=== PATIENT | female | born 1955 | race African-American/Black ===

== ENCOUNTER 2018-05-12 16:04 | Emergency (ER) | payer MEDICAID ==
[~2018-05-12] VITALS: Ht 167.6 cm; Wt 68.0 kg
[~2018-05-12 16:04] MED LIST: AMBIEN; AMLODIPINE BESYL5 MG ORAL; ASPIRIN81 MG ORAL; ASPRIN; ATORVASTATIN CA20 MG ORAL; CATAPRES0.1 MG PO; CATAPRES0.3 MG ORAL; CLONIDINE PO; CLOTRIMAZOLE AF30 GM TOPIC; DIPHENHYDRAMINE25 M1 ORAL; ENALAPRIL MALEA10 MG ORAL; IBUPROFEN200 MG ORAL; IBUPROFEN600 MG PO; INDERAL; ISOSORBIDE DINIT5 MG ORAL; KEFLEX500 MG ORAL; LEVOFLOXAC500 MG/20 PO; METHADONE PO; METHADONE10 MG/5 ML PO; NARATRIPTAN2.5 MG ORAL; NITRO; NORCO 5-325 TA1 EACH ORAL; PLAVIX75 MG ORAL; PROPRANOLOL HCL10 MG ORAL; TOPIRAMATE25 MG ORAL; TRAZODONE HCL100 MG ORAL; [UNRECOGNIZED DRUG - OTHER]
[2018-05-12 16:31] VITALS: BP 145/97
--- NOTE | 2018-05-12 16:48 | Diagnostic Imaging Report ---
Indication: Dyspnea Comparison: 04/09/2016 A single view chest radiograph was obtained. Findings: No definite infiltrate or pulmonary vascular congestion identified. The heart is enlarged. The aorta is mildly enlarged consistent with atherosclerotic vascular disease. The bones are osteopenic. Impression: No acute disease
[2018-05-12 16:51] LABS: BASOPHILS % (AUTO) 1.6 % (0.0-2.0); HEMATOCRIT 44.4 % (37.0-47.0); HEMOGLOBIN 13.6 G/DL (12.0-16.0); LYMPHOCYTES % (AUTO) 38.3 % (20.0-45.0); MEAN CORPUSCULAR VOLUME 78 FL (80-99); MONOCYTES % (AUTO) 9.9 % (1.0-10.0); NEUTROPHILS % (AUTO) 47.2 % (45.0-75.0); PLATELET COUNT 298 K/UL (150-450); RED BLOOD COUNT 5.73 M/UL (4.20-5.40); RED CELL DISTRIBUTION WIDTH 12.1 % (11.6-14.8); WHITE BLOOD COUNT 8.3 K/UL (4.8-10.8)
[2018-05-12 17:31] LABS: ANION GAP 8 mmol/L (5-15); BLOOD UREA NITROGEN 13 mg/dL (7-18); CALCIUM 9.4 MG/DL (8.5-10.1); CARBON DIOXIDE 28 MMOL/L (21-32); CHLORIDE 107 MMOL/L (98-107); POTASSIUM 4.1 MMOL/L (3.5-5.1); SODIUM 142 MMOL/L (136-145)
[2018-05-12 17:57] LABS: ALANINE AMINOTRANSFERASE 27 U/L (12-78); ALBUMIN 2.9 G/DL (3.4-5.0); ALBUMIN/GLOBULIN RATIO 0.7 (1.0-2.7); ALKALINE PHOSPHATASE 93 U/L (46-116); ASPARTATE AMINO TRANSFERASE 37 U/L (15-37); BILIRUBIN,TOTAL 0.3 MG/DL (0.2-1.0); CKMB 3.7 NG/ML (0.0-3.6); CREATINE KINASE 279 U/L (26-308)
[2018-05-12 18:18] VITALS: BP 155/92
--- NOTE | 2018-05-12 19:21 | Emergency Room Report ---
History of Present Illness General Chief Complaint: Dizziness Source: Patient Present Illness HPI Patient is a 63-year-old female who presented by EMS after increased Generalized weakness and altered mental status. Patient gradual onset of symptoms. Patient was noted to have increased lethargy. The patient had been have been noted to have a recent fall. She reported having increased pain to her neck. The patient was more somnolent than usual. Allergies: Coded Allergies: No Known Allergies (Verified , 10/19/11) Patient History Past Medical History: see triage record Reviewed Nursing Documentation: PMH: Agreed; PSxH: Agreed Nursing Documentation-PMH Past Medical History: No History, Except For Hx Cardiac Problems: Yes Hx Hypertension: Yes Hx COPD: Yes Hx Cancer: Yes Hx Gastrointestinal Problems: Yes - Patial intesins removed Hx Neurological Problems: Yes - Cerebral Aneurysm Hx Cerebrovascular Accident: Yes - 2011, 2012 Hx Headaches: Yes Hx Weakness: Yes Review of Systems All Other Systems: limited - by mental status Physical Exam Vital Signs Date Time Temp Pulse Resp B/P (MAP) Pulse Ox O2 Delivery O2 Flow Rate FiO2 05/12/18 16:12 97.5 58 17 141/92 93 Room Air Sp02 EP Interpretation: reviewed, normal General Appearance: normal inspection, well appearing, no apparent distress, alert, Chronically Ill Head: atraumatic ENT: normal ENT inspection, hearing grossly normal, normal voice Neck: normal inspection, full range of motion, supple, no bony tend Respiratory: normal inspection, lungs clear, normal breath sounds, no respiratory distress, no retraction, no wheezing Cardiovascular #1: regular rate, rhythm, no edema Gastrointestinal: normal inspection, normal bowel sounds, non tender, soft, no guarding, no hernia Genitourinary: no CVA tenderness Musculoskeletal: normal inspection, back normal, normal range of motion Neurologic: normal inspection, responsive, speech normal Psychiatric: normal inspection, judgement/insight normal, mood/affect normal Skin: normal inspection, normal color, no rash Medical Decision Making Diagnostic Impression: Primary Impression: Altered mental status Additional Impression: Urinary tract infection ER Course Patient presented for generalized weakness. Differential diagnosis included was not limited to anemia, urinary tract infection, electrolyte abnormality, hypothyroidism, myocardial infarction, myasthenia gravis, dehydration, among others. Because of complexity of patient's case laboratory testing and imaging studies were ordered. The patient was noted to have a recent fall CT the head read by radiology showed no evidence of acute fracture or intracranial hemorrhage. CT of cervical spine showed degenerative changes without evident fracture or malalignment.Patient is given IV antibiotics for what appears to be urinary infection. The patient will likely be transferred a [facility] for further management of altered mental status.The patient was discussed with Dr. Alejo for [facility] physician urine drug is positive for cocaine. Labs Test 05/12/18 16:40 05/12/18 19:20 05/12/18 19:23 White Blood Count 8.3 K/UL (4.8-10.8) Red Blood Count 5.73 M/UL (4.20-5.40) Hemoglobin 13.6 G/DL (12.0-16.0) Hematocrit 44.4 % (37.0-47.0) Mean Corpuscular Volume 78 FL (80-99) Mean Corpuscular Hemoglobin 23.8 PG (27.0-31.0) Mean Corpuscular Hemoglobin Concent 30.7 G/DL (32.0-36.0) Red Cell Distribution Width 12.1 % (11.6-14.8) Platelet Count 298 K/UL (150-450) Mean Platelet Volume 6.9 FL (6.5-10.1) Neutrophils (%) (Auto) 47.2 % (45.0-75.0) Lymphocytes (%) (Auto) 38.3 % (20.0-45.0) Monocytes (%) (Auto) 9.9 % (1.0-10.0) Eosinophils (%) (Auto) 3.0 % (0.0-3.0) Basophils (%) (Auto) 1.6 % (0.0-2.0) Sodium Level 142 MMOL/L (136-145) Potassium Level 4.1 MMOL/L (3.5-5.1) Chloride Level 107 MMOL/L (98-107) Carbon Dioxide Level 28 MMOL/L (21-32) Anion Gap 8 mmol/L (5-15) Blood Urea Nitrogen 13 mg/dL (7-18) Creatinine 1.0 MG/DL (0.55-1.30) Estimat Glomerular Filtration Rate > 60 mL/min (>60) Glucose Level 66 MG/DL (74-106) Calcium Level 9.4 MG/DL (8.5-10.1) Total Bilirubin 0.3 MG/DL (0.2-1.0) Aspartate Amino Transf (AST/SGOT) 37 U/L (15-37) Alanine Aminotransferase (ALT/SGPT) 27 U/L (12-78) Alkaline Phosphatase 93 U/L (46-116) Total Creatine Kinase 279 U/L (26-308) Creatine Kinase MB 3.7 NG/ML (0.0-3.6) Creatine Kinase MB Relative Index 1.3 Troponin I 0.006 ng/mL (0.000-0.056) Pro-B-Type Natriuretic Peptide 68 pg/mL (0-125) Total Protein 7.2 G/DL (6.4-8.2) Albumin 2.9 G/DL (3.4-5.0) Globulin 4.3 g/dL Albumin/Globulin Ratio 0.7 (1.0-2.7) Urine Color Yellow Urine Appearance Clear Urine pH 6.5 (4.5-8.0) Urine Specific [place] 1.010 (1.005-1.035) Urine Protein Negative (NEGATIVE) Urine Glucose (UA) Negative (NEGATIVE) Urine Ketones Negative (NEGATIVE) Urine Blood Negative (NEGATIVE) Urine Nitrite Negative (NEGATIVE) Urine Bilirubin Negative (NEGATIVE) Urine Urobilinogen 8 MG/DL (0.0-1.0) Urine Leukocyte Esterase 3+ (NEGATIVE) Urine RBC 0-2 /HPF (0 - 2) Urine WBC 5-10 /HPF (0 - 2) Urine Squamous Epithelial Cells Few /LPF (NONE/OCC) Urine Bacteria Few /HPF (NONE) EKG Diagnostic Results Rate: normal Rhythm: NSR ST Segments: no acute changes Last Vital Signs Date Time Temp Pulse Resp B/P (MAP) Pulse Ox O2 Delivery O2 Flow Rate FiO2 05/12/18 18:18 97.5 53 15 155/92 100 Room Air Status: unchanged Disposition: XFER SHT-TRM HOSP Condition: Stable Referrals: [facility],REFERR[facility] (PCP) Fareed Wallace MD May 12, 2018 19:21
[2018-05-12 19:30] VITALS: BP 155/92
[2018-05-12 19:48] LABS: APPEARANCE,URINE CLEAR; BILIRUBIN, URINE NEGATIVE (NEGATIVE); GLUCOSE, URINE (UA) NEGATIVE (NEGATIVE); KETONES,URINE NEGATIVE (NEGATIVE); LEUKOCYTE ESTERASE ,URINE 3+ (NEGATIVE); NITRITE,URINE NEGATIVE (NEGATIVE); PH,URINE 6.5 (4.5-8.0); PROTEIN,URINE NEGATIVE (NEGATIVE); UROBILINOGEN,URINE 8 MG/DL (0.0-1.0)
[2018-05-12 19:49] LABS: COLOR,URINE YELLOW
[2018-05-12] MEDS ORDERED: cefTRIAXone 1 GM in NS 55 ML IVPB ONE (20:15)
[2018-05-12 21:51] VITALS: BP 128/70
[2018-05-12 23:06] VITALS: BP 124/70
--- NOTE | 2018-05-13 08:45 | Diagnostic Imaging Report ---
Indication: Pain, status post fall Technique: Spiral acquisitions obtained through the cervical spine. No IV contrast utilized. Multiplanar reconstructions were generated. Total dose length product 1694.05 mGycm. CTDIvol(s) 70.38,14.82 mGy. Dose reduction achieved using automated exposure control. Comparison: none Findings: Bony alignment is normal. Vertebral body heights are preserved. There is degenerative disc narrowing at C5-6 and C6-7. No acute fractures. No dislocations. At C3-4, there is mild neural foraminal stenosis on the right. No significant disc bulge or protrusion or spinal stenosis. At C4-5, there is [id number] neural foraminal stenosis bilaterally. No significant disc bulge or protrusion or spinal stenosis. At C5-6, there is degenerative disc narrowing. There is moderate to severe left and [id number] right neural foraminal narrowing. At C6-7, there is degenerative disc narrowing. There is moderate to severe left and [id number]-di-[id number] right neural foraminal narrowing. No significant disc bulge or protrusion or spinal stenosis. The included extraspinal soft tissues are unremarkable. Impression: No acute bony trauma Degenerative changes, as described This agrees with the preliminary interpretation provided overnight by Dr. Rivas The CT scanner at [facility] is accredited by the [employer] and the scans are performed using protocols designed to limit radiation exposure to as low as reasonably achievable to attain images of sufficient resolution adequate for diagnostic evaluation.
== END 2018-05-12 23:00 | disposition short-term general hospital (02) ==
LOC: EMR 16:52 → EDBEDREQ 17:23 → EMR 23:00
DX: R41.82 Altered mental status, unspecified (principal); N39.0 Urinary tract infection, site not specified; J44.9 Chronic obstructive pulmonary disease, unspecified; I10 Essential (primary) hypertension; Z86.73 Personal history of transient ischemic attack (TIA), and cerebral infarction without residual deficits
CPT/HCPCS: 36415; 70450; 71045; 72125; 80053; 80307; 81003; 82550; 82553; 83880; 84484; 85025; 93005; 96365; 99285; J0696

== ENCOUNTER 2019-03-25 06:24 | Emergency (ER) | payer MEDICAID ==
[~2019-03-25] VITALS: Ht 167.6 cm; Wt 83.9 kg
--- NOTE | 2019-03-25 06:39 | Emergency Room Report ---
History of Present Illness General Chief Complaint: Abdominal Pain Present Illness HPI Disclaimer: Please note that this report is being documented using [employer] technology. This can lead to erroneous entry secondary to incorrect interpretation by the dictating instrument. HPI: This is a 63-year-old female with a history of total hysterectomy and oophorectomy in , hypertension, hyperlipidemia, CAD, CVA without residual deficits presents for evaluation of abdominal pain and vaginal bleeding. Symptoms began 4 days ago during sexual intercourse the patient loaded bilateral sudden onset abdominal sharp stabbing pain and vaginal bleeding. She has had intermittent vaginal spotting since this episode but it appears to be getting credit specialist. She notes worsening bilateral abdominal pain and some dysuria and hematuria. She denies back or flank pain. Denies fever, chills, chest pain , shortness of breath. Reports nausea but denies vomiting. No diarrhea, no hematochezia, no melena. Denies vaginal discharge. Has not taken any medications prior to arrival. PMH: Hypertension, hyperlipidemia, CVA, CAD PSH: Total hysterectomy and oophorectomy, appendectomy Allergies: None Social Hx: Current smoker, former alcohol and drug use, none for the past 10 years Allergies: Coded Allergies: No Known Allergies (Verified , 10/19/11) Patient History Last Menstrual Period: na Nursing Documentation-PMH Hx Cardiac Problems: Yes Hx Hypertension: Yes Hx COPD: Yes Hx Cancer: Yes Hx Gastrointestinal Problems: Yes - Patial intesins removed Hx Neurological Problems: Yes - Cerebral Aneurysm Hx Cerebrovascular Accident: Yes - 2011, 2012 Hx Headaches: Yes Hx Weakness: Yes Review of Systems All Other Systems: negative except mentioned in HPI Physical Exam Vital Signs Date Time Temp Pulse Resp B/P (MAP) Pulse Ox O2 Delivery O2 Flow Rate FiO2 03/25/19 06:28 98.2 69 18 149/85 (106) 95 Room Air General: Awake and alert, appears moderately uncomfortable HEENT: NC/AT. EOMI. Cardiovascular: RRR. S1 and S2 normal. No murmur appreciated Resp: Normal work of breathing. No cough, wheezing or crackles appreciated Abdomen: Abdomen is soft, nondistended. Tender to palpation in the lower quadrants and suprapubic region. No rebound. No masses Skin: Intact. No abrasions, laceration or rash over the exposed skin. Surgical scars over the abdomen are clean, dry and intact MSK: Normal tone and bulk. Moving all extremities. No obvious deformity. Neuro: Awake and alert. Mentating appropriately. Medical Decision Making Diagnostic Impression: Primary Impression: UTI (urinary tract infection) Additional Impressions: Hiatal hernia Inguinal hernia ER Course 63-year-old female presents for evaluation of postcoital bleeding, bilateral abdominal pain and dysuria for the past 4 days. Differential includes but is not limited to cystitis, pyelonephritis, STI, diverticulitis, bowel obstruction , intra-abdominal abscess, postsurgical changes. Will obtain a CT scan of the abdomen, start IV fluids, broad metabolic and infectious work-up, give antiemetics and pain medication. Disposition depending on imaging and lab results. Laboratory Tests Test 03/25/19 06:50 03/25/19 08:30 White Blood Count 9.3 K/UL (4.8-10.8) Red Blood Count 6.13 M/UL (4.20-5.40) H Hemoglobin 14.3 G/DL (12.0-16.0) Hematocrit 46.0 % (37.0-47.0) Mean Corpuscular Volume 75 FL (80-99) L Mean Corpuscular Hemoglobin 23.4 PG (27.0-31.0) L Mean Corpuscular Hemoglobin Concent 31.1 G/DL (32.0-36.0) L Red Cell Distribution Width 12.4 % (11.6-14.8) Platelet Count 300 K/UL (150-450) Mean Platelet Volume 6.7 FL (6.5-10.1) Neutrophils (%) (Auto) 70.2 % (45.0-75.0) Lymphocytes (%) (Auto) 21.5 % (20.0-45.0) Monocytes (%) (Auto) 6.4 % (1.0-10.0) Eosinophils (%) (Auto) 1.0 % (0.0-3.0) Basophils (%) (Auto) 0.9 % (0.0-2.0) Sodium Level 143 MMOL/L (136-145) Potassium Level 4.4 MMOL/L (3.5-5.1) Chloride Level 107 MMOL/L (98-107) Carbon Dioxide Level 27 MMOL/L (21-32) Anion Gap 9 mmol/L (5-15) Blood Urea Nitrogen 13 mg/dL (7-18) Creatinine 1.0 MG/DL (0.55-1.30) Estimate Glomerular Filtration Rate > 60 mL/min (>60) Glucose Level 101 MG/DL (74-106) Calcium Level 9.7 MG/DL (8.5-10.1) Total Bilirubin 0.4 MG/DL (0.2-1.0) Aspartate Amino Transferase (AST) 20 U/L (15-37) Alanine Aminotransferase (ALT) 15 U/L (12-78) Alkaline Phosphatase 161 U/L (46-116) H Total Protein 8.0 G/DL (6.4-8.2) Albumin 3.5 G/DL (3.4-5.0) Globulin 4.5 g/dL Albumin/Globulin Ratio 0.8 (1.0-2.7) L Lipase 89 U/L (73-393) Urine Color Yellow Urine Appearance Slightly cloudy Urine pH 6 (4.5-8.0) Urine Specific [place] 1.015 (1.005-1.035) Urine Protein Negative (NEGATIVE) Urine Glucose (UA) Negative (NEGATIVE) Urine Ketones Negative (NEGATIVE) Urine Blood 2+ (NEGATIVE) H Urine Nitrite Negative (NEGATIVE) Urine Bilirubin Negative (NEGATIVE) Urine Urobilinogen Normal MG/DL (0.0-1.0) Urine Leukocyte Esterase 3+ (NEGATIVE) H Urine RBC 10-15 /HPF (0 - 2) H Urine WBC 30-40 /HPF (0 - 2) H Urine Squamous Epithelial Cells Many /LPF (NONE/OCC) H Urine Bacteria Few /HPF (NONE) Urine Mucus Moderate /LPF (NONE/OCC) H Reevaluation Time: 10:26 Last Vital Signs Date Time Temp Pulse Resp B/P (MAP) Pulse Ox O2 Delivery O2 Flow Rate FiO2 03/25/19 06:28 98.2 69 18 149/85 (106) 95 Room Air Status: improved Reevaluation Impression Labs have returned largely within normal limits. There is no significant white count, no anemia, normal renal function, LFTs within normal limits as are electrolytes. Lipase is unremarkable. There is evidence of acute urinary tract infection with 3+ leukocyte esterase and 30-40 white cells. The patient will be treated for urinary tract infection with oral antibiotics. She has received IV fluids and her symptoms are improved. CT scan of the abdomen shows a hiatal hernia but otherwise no signs of significant abscess, obstruction, appendicitis or other major pathology. She will be discharged home on Macrobid for 7 days and follow-up with her PMD. I strongly encouraged her to return to the emergency department if she is having any worsening symptoms and otherwise to follow-up with her PMD and [facility]. She understands and agrees with this treatment plan was discharged home Disposition: HOME, SELF-CARE Condition: Improved Scripts Nitrofurantoin Monohyd/M-Cryst* (MACROBID 100 MG*) 100 Mg Capsule 100 MG ORAL EVERY 12 HOURS for 7 Days, #14 CAP Prov: Maico Gonzales MD 03/25/19 Maico Gonzales MD Mar 25, 2019 06:39
[2019-03-25] MEDS ORDERED: Isovue-300 100ml vial INJ PRN (06:45)
[2019-03-25] MEDS ORDERED: Morphine Sulfate 4mg/ml Inj (IV USE ONLY) IVP ONE (06:45)
--- NOTE | 2019-03-25 06:45 | NUR ---
ED Nurse Note: pt brought in by LINDA from rehab facility c/c lower abd pain since friday with nausea, pt reports she was in sexual activity with her boyfriend and had heavy vaginal bleeding and ever since pain didn't go away and progressively worsen. pt denies vaginal bleeding at this time but reports pain worsen on palpation. noted tenderness on lower abd. pt unable to provide urine at this time. pt AA&ox4, gcs=15, skin warm and dry, resp even and unlabored on RA, no active n/v/d at this time, vss, will cont monitor.
[2019-03-25 07:00] VITALS: BP 123/69
--- NOTE | 2019-03-25 07:19 | NUR ---
HAND-OFF: Report given to AGNIESZKA HULL and endorsed care. informed RN regarding iv access for CT scan.
[2019-03-25 07:27] LABS: BASOPHILS % (AUTO) 0.9 % (0.0-2.0); HEMOGLOBIN 14.3 G/DL (12.0-16.0); LYMPHOCYTES % (AUTO) 21.5 % (20.0-45.0); MEAN CORPUSCULAR VOLUME 75 FL (80-99); MONOCYTES % (AUTO) 6.4 % (1.0-10.0); NEUTROPHILS % (AUTO) 70.2 % (45.0-75.0); PLATELET COUNT 300 K/UL (150-450); RED BLOOD COUNT 6.13 M/UL (4.20-5.40); RED CELL DISTRIBUTION WIDTH 12.4 % (11.6-14.8); WHITE BLOOD COUNT 9.3 K/UL (4.8-10.8)
[2019-03-25 07:29] LABS: ANION GAP 9 mmol/L (5-15); BLOOD UREA NITROGEN 13 mg/dL (7-18); CALCIUM 9.7 MG/DL (8.5-10.1); CARBON DIOXIDE 27 MMOL/L (21-32); CHLORIDE 107 MMOL/L (98-107); POTASSIUM 4.4 MMOL/L (3.5-5.1); SODIUM 143 MMOL/L (136-145)
[2019-03-25 07:35] LABS: ALANINE AMINOTRANSFERASE 15 U/L (12-78); ALBUMIN 3.5 G/DL (3.4-5.0); ALBUMIN/GLOBULIN RATIO 0.8 (1.0-2.7); ALKALINE PHOSPHATASE 161 U/L (46-116); ASPARTATE AMINO TRANSFERASE 20 U/L (15-37); BILIRUBIN,TOTAL 0.4 MG/DL (0.2-1.0)
--- NOTE | 2019-03-25 08:52 | Diagnostic Imaging Report ---
Indication: Abdominal pain Technique: Continuous helical transaxial imaging of the abdomen and pelvis was obtained from the lung bases to the pubic symphysis during intravenous contrast administration. Coronal 2-D reformats were also obtained. Study obtained in a Siemens sensation [address] Automatic Exposure Control was utilized. Total Dose length Product (DLP): 902.[address] Dose Index Volume (CTDIvol): 16.58 mGy Comparison: None Findings: Mild groundglass opacities are noted at the lung bases. This is likely due to scarring as there is some associated bronchiectasis. Small hiatal hernia is present. The heart is enlarged. Aorta shows mural calcium consistent with atherosclerotic disease. The gallbladder is unremarkable. The pancreas, spleen and kidneys, liver and adrenal glands are unremarkable. There is no hydronephrosis. Bowel gas pattern is nonobstructive. The appendix is not definitely seen. There are no secondary signs of acute appendicitis. There are tiny bilateral inguinal hernias containing fat noted. There is no free fluid. The urinary bladder is unremarkable. Uterus is absent. There is narrowing of intervertebral discs and accompanying endplate osteophyte formation. Hypertrophied facet joints also demonstrated. IMPRESSION: No acute findings appreciated. Mild bronchiectasis at the lung bases. Hiatal hernia Tiny bilateral inguinal hernias containing fat Atherosclerotic vascular disease Degenerative changes of the spine. Status post hysterectomy The CT scanner at [facility] is accredited by the [employer] and the scans are performed using dose optimization techniques as appropriate to a performed exam including Automatic Exposure control.
[2019-03-25 09:00] VITALS: BP 134/70
[2019-03-25 09:21] LABS: APPEARANCE,URINE SLIGHTLY CLOUDY; BILIRUBIN, URINE NEGATIVE (NEGATIVE); GLUCOSE, URINE (UA) NEGATIVE (NEGATIVE); KETONES,URINE NEGATIVE (NEGATIVE); LEUKOCYTE ESTERASE ,URINE 3+ (NEGATIVE); NITRITE,URINE NEGATIVE (NEGATIVE); PH,URINE 6 (4.5-8.0); PROTEIN,URINE NEGATIVE (NEGATIVE); UROBILINOGEN,URINE NORMAL MG/DL (0.0-1.0)
[2019-03-25 09:23] LABS: COLOR,URINE YELLOW
[2019-03-25] MEDS ORDERED: NITROFURANTOIN100 M2 ORAL (10:25)
--- NOTE | 2019-03-25 10:30 | NUR ---
ED Nurse Note: Pt states she lives in a house and only goes to the rehab facility as outpatient. Daughter will pick her up in ED.
[2019-03-25 10:33] VITALS: BP 145/87
--- NOTE | 2019-03-25 10:33 | NUR ---
ER DISCHARGE NOTE: Patient is cleared to be discharged per ERMD, pt is aox4, on room air, with stable vital signs. pt was given dc and prescription instructions, pt was able to verbalize understanding, pt id band and iv site removed without complications. pt is able to ambulate with steady gait. pt took all belongings.
== END 2019-03-25 10:33 | disposition home or self-care (01) ==
LOC: EDUNIT# 06:24 → EDBD 06:24 → EMR 07:12
DX: N39.0 Urinary tract infection, site not specified (principal); K44.9 Diaphragmatic hernia without obstruction or gangrene; K40.90 Unilateral inguinal hernia, without obstruction or gangrene, not specified as recurrent; I10 Essential (primary) hypertension; J44.9 Chronic obstructive pulmonary disease, unspecified; Z85.9 Personal history of malignant neoplasm, unspecified; Z86.73 Personal history of transient ischemic attack (TIA), and cerebral infarction without residual deficits; E78.5 Hyperlipidemia, unspecified; I25.10 Atherosclerotic heart disease of native coronary artery without angina pectoris; Z90.710 Acquired absence of both cervix and uterus; Z90.49 Acquired absence of other specified parts of digestive tract
CPT/HCPCS: 36415; 74177; 80053; 81003; 83690; 85025; 87086; 87181; 96361; 96374; 96375; J2270; J2405; Q9967; Z7502; 99284

== ENCOUNTER 2019-06-15 15:12 | Emergency (ER) | payer MEDICAID ==
[~2019-06-15] VITALS: Ht 167.6 cm; Wt 83.0 kg
[~2019-06-15 15:12] MED LIST changes: +NITROFURANTOIN100 M2 ORAL
[2019-06-15 15:25] VITALS: BP 170/101
--- NOTE | 2019-06-15 15:25 | NUR ---
ED Nurse Note: Pt walked into ER from home d/t chest pain radiating to left arm and shoulder rated at 8/10. Patient aao x 4 and ambulatory. Patient placed in shelter monitor and gown. No acute distress at assessment.
[2019-06-15] MEDS ORDERED: Aspirin Baby 81mg ORAL ONE (15:30)
--- NOTE | 2019-06-15 15:30 | NUR ---
ED Nurse Note: ERMD at bedside.
--- NOTE | 2019-06-15 15:41 | Emergency Room Report ---
History of Present Illness General Chief Complaint: Chest Pain Source: Patient Present Illness HPI Disclaimer: Please note that this report is being documented using [employer] technology. This can lead to erroneous entry secondary to incorrect interpretation by the dictating instrument. HPI: This is a 63-year-old female with a history of total hysterectomy and oophorectomy in , hypertension, hyperlipidemia, CAD, CVA without residual deficits presents for chest pain and dysuria. Patient states she has been having some dysuria and burning sensation while passing urine without hematuria or flank pain for approximately 6 days. She has had urinary tract infections in the past that respond to medication states is similar presentation. Intermittent nausea but denies vomiting or diarrhea. No significant abdominal pain. Over the past 2 days she describes some left-sided chest pressure radiating down the left arm associated with some numbness and tingling in the left hand. She did have a fall in the shower falling backwards without a head injury approximately 4 days ago and has residual left-sided soreness in the buttocks and over the left chest wall. Pain is somewhat exacerbated by movement though is also made worse by activity such as walking. Currently has no chest pain but was complaining of 8/10 chest pain and shortness of breath while walking earlier today. She has been compliant with her isosorbide, enalapril and clopidogrel. She does not follow with a art therapy certified supervisor anymore but has regular PMD follow-up. Last stress test was over 2 years ago. 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 Allergies: Coded Allergies: No Known Allergies (Verified , 10/19/11) Patient History Last Menstrual Period: 20 years ago Nursing Documentation-PMH Past Medical History: No History, Except For Hx Hypertension: Yes Hx COPD: Yes Hx Cancer: Yes Hx Gastrointestinal Problems: Yes - Patial intesins removed Hx Neurological Problems: Yes - Cerebral Aneurysm Hx Cerebrovascular Accident: Yes - 2011, 2012 Hx Headaches: Yes Hx Weakness: Yes Review of Systems All Other Systems: negative except mentioned in HPI Physical Exam Vital Signs Date Time Temp Pulse Resp B/P (MAP) Pulse Ox O2 Delivery O2 Flow Rate FiO2 06/15/19 15:16 98.8 61 17 176/100 (125) 98 Room Air General: Awake and alert, no acute distress HEENT: NC/AT. EOMI. Neck: Supple, trachea midline Chest Wall: Tenderness palpation over the left midclavicular and midaxillary lines without deformity or crepitus Cardiovascular: RRR. S1 and S2 normal. No murmur appreciated Resp: Normal work of breathing. No cough, wheezing or crackles appreciated Abdomen: Abdomen is soft, nondistended. Mild suprapubic tenderness. Obese abdomen. No rebound Skin: Intact. No abrasions, laceration or rash over the exposed skin MSK: Normal tone and bulk. Moving all extremities. No obvious deformity. Neuro: Awake and alert. Mentating appropriately. Medical Decision Making Diagnostic Impression: Primary Impression: UTI (urinary tract infection) Additional Impression: Chest pain ER Course 64-year-old female presents for evaluation of 2 days chest pain and 6 days dysuria. Given the patient's history and risk factors will require a cardiac work-up and will send urinalysis as well. May be musculoskeletal chest pain though her history is consistent with CAD and no recent stress test in the past 2 years. Laboratory Tests Test 06/15/19 15:31 White Blood Count 9.3 K/UL (4.8-10.8) Red Blood Count 5.76 M/UL (4.20-5.40) H Hemoglobin 13.5 G/DL (12.0-16.0) Hematocrit 41.7 % (37.0-47.0) Mean Corpuscular Volume 72 FL (80-99) L Mean Corpuscular Hemoglobin 23.4 PG (27.0-31.0) L Mean Corpuscular Hemoglobin Concent 32.3 G/DL (32.0-36.0) Red Cell Distribution Width 11.0 % (11.6-14.8) L Platelet Count 307 K/UL (150-450) Mean Platelet Volume 6.1 FL (6.5-10.1) L Neutrophils (%) (Auto) 53.3 % (45.0-75.0) Lymphocytes (%) (Auto) 35.6 % (20.0-45.0) Monocytes (%) (Auto) 7.1 % (1.0-10.0) Eosinophils (%) (Auto) 2.8 % (0.0-3.0) Basophils (%) (Auto) 1.2 % (0.0-2.0) Urine Color [place] Urine Appearance Slightly cloudy Urine pH 5 (4.5-8.0) Urine Specific [place] 1.025 (1.005-1.035) Urine Protein Negative (NEGATIVE) Urine Glucose (UA) Negative (NEGATIVE) Urine Ketones Negative (NEGATIVE) Urine Blood 1+ (NEGATIVE) H Urine Nitrite Negative (NEGATIVE) Urine Bilirubin Negative (NEGATIVE) Urine Ictotest Negative (NEGATIVE) Urine Urobilinogen 1 MG/DL (0.0-1.0) H Urine Leukocyte Esterase 3+ (NEGATIVE) H Urine RBC 5-10 /HPF (0 - 2) H Urine WBC 10-15 /HPF (0 - 2) H Urine Squamous Epithelial Cells Moderate /LPF (NONE/OCC) H Urine Bacteria Moderate /HPF (NONE) H Sodium Level 142 MMOL/L (136-145) Potassium Level 4.2 MMOL/L (3.5-5.1) Chloride Level 104 MMOL/L (98-107) Carbon Dioxide Level 34 MMOL/L (21-32) H Anion Gap 4 mmol/L (5-15) L Blood Urea Nitrogen 19 mg/dL (7-18) H Creatinine 0.8 MG/DL (0.55-1.30) Estimate Glomerular Filtration Rate > 60 mL/min (>60) Glucose Level 93 MG/DL (74-106) Calcium Level 8.7 MG/DL (8.5-10.1) Total Bilirubin 0.2 MG/DL (0.2-1.0) Aspartate Amino Transferase (AST) 19 U/L (15-37) Alanine Aminotransferase (ALT) 18 U/L (12-78) Alkaline Phosphatase 153 U/L (46-116) H Troponin I 0.000 ng/mL (0.000-0.056) Pro-B-Type Natriuretic Peptide Pending Total Protein 7.6 G/DL (6.4-8.2) Albumin 3.2 G/DL (3.4-5.0) L Globulin 4.4 g/dL Albumin/Globulin Ratio 0.7 (1.0-2.7) L EKG Diagnostic Results EKG Time: 15:42 Rate: normal Rhythm: NSR ST Segments: no acute changes Other Impression Sinus rhythm, normal axis, normal intervals, no ST segment changes. Rhythm Strip Diag. Results Rhythm Strip Time: 15:42 EP Interpretation: yes Rate: 60s Rhythm: NSR, no PVC's, no ectopy Chest X-Ray Diagnostic Results Chest X-Ray Diagnostic Results : Chest X-Ray Ordered: Yes # of Views/Limited/Complete: 1 View Indication: Chest Pain EP Interpretation: Yes Interpretation: no consolidation, no effusion, no pneumothorax, no acute cardiopulmonary disease Impression: No acute disease Electronically Signed by: Electronically signed by Dr. Maico Gonzales Reevaluation Time: 16:53 Last Vital Signs Date Time Temp Pulse Resp B/P (MAP) Pulse Ox O2 Delivery O2 Flow Rate FiO2 06/15/19 15:16 98.8 61 17 176/100 (125) 98 Room Air Status: improved Reevaluation Impression Urinalysis consistent with an acute urinary tract infection. Troponin is negative. Other labs within normal limits. Patient states she is having intermittent shortness of breath for approximately 1.5 years. She no longer has an albuterol inhaler but did in the past. She would like to follow-up as an outpatient rather than have medical admission for chest pain work-up at this time. I will refill her prescription. She is also asking for some Motrin for her chest pain which I will prescribe as well as a lidocaine patch. She will be started on Keflex for 1 week. She will need close follow-up as an outpatient I discussed reasons to return to the emergency department as well. She understands and agrees with the treatment plan will be discharged home. Disposition: HOME, SELF-CARE Condition: Stable Scripts Acetaminophen* (ACETAMINOPHEN 325MG TABLET*) 325 Mg Tablet 650 MG ORAL Q4H PRN for For Pain for 5 Days, #30 TAB Prov: Maico Gonzales MD 06/15/19 Lidocaine Patch* (Lidoderm Patch*) 1 Each Adh..patch 1 PATCH TOPIC DAILY, #7 PATCH 0 Refills Patch(es) may remain in place for up to 12 hours in any 24-hour period. Prov: Maico Gonzales MD 06/15/19 Cephalexin* (KEFLEX*) 500 Mg Capsule 500 MG ORAL EVERY 12 HOURS for 7 Days, #14 CAP 0 Refills Prov: Maico Gonzales MD 06/15/19 Ibuprofen* (MOTRIN*) 600 Mg Tablet 600 MG ORAL Q8H PRN for For Pain, #30 TAB 0 Refills Prov: Maico Gonzales MD 06/15/19 Albuterol Sulfate* (ALBUTEROL SULFATE MDI*) 8.5 Gm Hfa.aer.ad 2 PUFF INH Q4H PRN for cough/wheezing, #1 EA 0 Refills Prov: Maico Gonzales MD 06/15/19 Maico Gonzales MD Jun 15, 2019 15:41
[2019-06-15 16:09] LABS: BASOPHILS % (AUTO) 1.2 % (0.0-2.0); EOSINOPHILS % (AUTO) 2.8 % (0.0-3.0); HEMATOCRIT 41.7 % (37.0-47.0); HEMOGLOBIN 13.5 G/DL (12.0-16.0); LYMPHOCYTES % (AUTO) 35.6 % (20.0-45.0); MEAN CORPUSCULAR VOLUME 72 FL (80-99); MONOCYTES % (AUTO) 7.1 % (1.0-10.0); NEUTROPHILS % (AUTO) 53.3 % (45.0-75.0); PLATELET COUNT 307 K/UL (150-450); RED BLOOD COUNT 5.76 M/UL (4.20-5.40); WHITE BLOOD COUNT 9.3 K/UL (4.8-10.8)
[2019-06-15 16:10] LABS: BILIRUBIN, URINE NEGATIVE (NEGATIVE); COLOR,URINE AMBER; GLUCOSE, URINE (UA) NEGATIVE (NEGATIVE); KETONES,URINE NEGATIVE (NEGATIVE); LEUKOCYTE ESTERASE ,URINE 3+ (NEGATIVE); NITRITE,URINE NEGATIVE (NEGATIVE); PH,URINE 5 (4.5-8.0); PROTEIN,URINE NEGATIVE (NEGATIVE); UROBILINOGEN,URINE 1 MG/DL (0.0-1.0)
[2019-06-15 16:12] LABS: APPEARANCE,URINE SLIGHTLY CLOUDY
--- NOTE | 2019-06-15 16:18 | Diagnostic Imaging Report ---
Indication: Chest pain Technique: One view of the chest Comparison: 05/12/2018 Findings: The heart size is normal. The aorta is elongated and tortuous. The upper mediastinum is unremarkable. Previously demonstrated basilar atelectatic changes have cleared. Impression: No acute process
[2019-06-15 16:23] LABS: ANION GAP 4 mmol/L (5-15); BLOOD UREA NITROGEN 19 mg/dL (7-18); CALCIUM 8.7 MG/DL (8.5-10.1); CARBON DIOXIDE 34 MMOL/L (21-32); CHLORIDE 104 MMOL/L (98-107); CREATININE 0.8 MG/DL (0.55-1.30); POTASSIUM 4.2 MMOL/L (3.5-5.1); SODIUM 142 MMOL/L (136-145)
[2019-06-15 16:34] LABS: ALANINE AMINOTRANSFERASE 18 U/L (12-78); ALBUMIN 3.2 G/DL (3.4-5.0); ALBUMIN/GLOBULIN RATIO 0.7 (1.0-2.7); ALKALINE PHOSPHATASE 153 U/L (46-116); ASPARTATE AMINO TRANSFERASE 19 U/L (15-37); BILIRUBIN,TOTAL 0.2 MG/DL (0.2-1.0)
[2019-06-15] MEDS ORDERED: ALBUTEROL SULF8.5 GM INH (16:49)
[2019-06-15] MEDS ORDERED: IBUPROFEN600 MG ORAL (16:49)
[2019-06-15] MEDS ORDERED: CEPHALEXIN500 MG ORAL (16:49)
[2019-06-15] MEDS ORDERED: LIDODERM700 M1 TOPIC (16:50)
[2019-06-15] MEDS ORDERED: ACETAMINOPHEN325 M1 ORAL (17:03)
[2019-06-15 17:10] VITALS: BP 172/98
--- NOTE | 2019-06-15 17:10 | NUR ---
ER DISCHARGE NOTE: Patient is cleared to be discharged per ERMD, pt is aox4, on room air, with stable vital signs. pt was given dc and prescription instructions, pt was able to verbalize understanding, pt id band and iv site removed without complications. pt is able to ambulate with steady gait. pt took all belongings. pt stable upon discharge.
--- NOTE | 2019-06-16 16:21 | Cardiology Report ---
APPROVED REPORT EKG Measurement Heart [id number] Normal sinus rhythm Minimal voltage criteria for LVH, may be normal variant Borderline ECG
== END 2019-06-15 17:10 | disposition home or self-care (01) ==
LOC: EMR 15:50
DX: N39.0 Urinary tract infection, site not specified (principal); R07.9 Chest pain, unspecified; Z90.710 Acquired absence of both cervix and uterus; Z90.721 Acquired absence of ovaries, unilateral; I10 Essential (primary) hypertension; J44.9 Chronic obstructive pulmonary disease, unspecified; E78.5 Hyperlipidemia, unspecified; I11.9 Hypertensive heart disease without heart failure; I25.10 Atherosclerotic heart disease of native coronary artery without angina pectoris; Z86.73 Personal history of transient ischemic attack (TIA), and cerebral infarction without residual deficits; F17.200 Nicotine dependence, unspecified, uncomplicated
CPT/HCPCS: 36415; 71045; 80053; 81003; 83880; 84484; 85025; 87086; 93005; Z7502; 99284

== ENCOUNTER 2020-04-01 14:20 | Emergency (ER) | payer MEDICAID ==
[~2020-04-01] VITALS: Ht 167.6 cm; Wt 82.6 kg
[~2020-04-01 14:20] MED LIST changes: +ACETAMINOPHEN325 M1 ORAL; +ALBUTEROL SULF8.5 GM INH; +CEPHALEXIN500 MG ORAL; +IBUPROFEN600 MG ORAL; +LIDODERM700 M1 TOPIC
[2020-04-01] MEDS ORDERED: ENALAPRIL-HCTZ1 EACH ORAL (14:31)
[2020-04-01] MEDS ORDERED: Augmentin 875mg Tab ORAL ONE (14:45)
[2020-04-01 14:47] VITALS: BP 137/89
[2020-04-01] MEDS ORDERED: AUGMENTIN 875-1 EAC1 ORAL (14:52)
[2020-04-01 15:00] VITALS: BP 132/85
--- NOTE | 2020-04-01 20:24 | Emergency Room Report ---
History of Present Illness General Chief Complaint: Skin Rash/Abscess Source: Patient Present Illness HPI 64-year-old female presents the ED with abscesses to her arm. Noticed them earlier this week. Notes an abscess to her right arm and her left arm. Dull, 6 out of 10, nonradiating. States they are hard. Denies any fevers or chills. Denies any discharge. States that she does use drugs and injects. No other aggravating relieving factors. Denies any other associated symptoms Allergies: Coded Allergies: No Known Allergies (Verified , 10/19/11) COVID-19 Screening Contact w/high risk pt: No Experienced COVID-19 symptoms?: No COVID-19 Testing performed ASSAYER HELPER: No Patient History Past Medical History: HTN, CVA/TIA Pertinent Family History: none Social History: Reports: drug use; Denies: smoking, alcohol use Last Menstrual Period: n/a Immunizations: UTD Reviewed Nursing Documentation: PMH: Agreed; PSxH: Agreed Nursing Documentation-PMH Past Medical History: No History, Except For Hx Hypertension: Yes Hx COPD: Yes Hx Cancer: Yes Hx Gastrointestinal Problems: Yes - Patial intesins removed Hx Neurological Problems: Yes - Cerebral Aneurysm Hx Cerebrovascular Accident: Yes - 2011, 2012 Hx Headaches: Yes Hx Weakness: Yes Review of Systems All Other Systems: negative except mentioned in HPI Physical Exam Vital Signs Date Time Temp Pulse Resp B/P (MAP) Pulse Ox O2 Delivery O2 Flow Rate FiO2 04/01/20 14:27 97.9 76 15 144/90 (108) 96 Room Air Sp02 EP Interpretation: reviewed, normal General Appearance: no apparent distress, alert, GCS 15, non-toxic, obese Head: normocephalic, atraumatic Eyes: bilateral eye normal inspection, bilateral eye PERRL ENT: hearing grossly normal, normal pharynx, no angioedema, normal voice Neck: full range of motion, supple/symm/no masses Respiratory: chest non-tender, lungs clear, normal breath sounds, speaking full sentences Cardiovascular #1: regular rate, rhythm, no edema Cardiovascular #2: 2+ carotid (R), 2+ carotid (L), 2+ radial (R), 2+ radial (L), 2+ dorsalis pedis (R), 2+ dorsalis pedis (L) Gastrointestinal: normal bowel sounds, non tender, soft, non-distended, no guarding, no rebound Rectal: deferred Genitourinary: normal inspection, no CVA tenderness Musculoskeletal: back normal, normal range of motion, gait/station normal, non- tender Neurologic: alert, motor strength/tone normal, oriented x3, sensory intact, responsive, speech normal Psychiatric: judgement/insight normal, memory normal, mood/affect normal, no suicidal/homicidal ideation Reflexes: 3+ bicep (R), 3+ bicep (L), 3+ tricep (R), 3+ tricep (L), 3+ knee (R), 3+ knee (L) Skin: other - site of erythema/induration R arm and L arm. no fluctuance or discharge Lymphatic: no adenopathy Medical Decision Making Diagnostic Impression: Primary Impression: Abscess Additional Impression: Substance abuse ER Course Hospital Course 64-year-old female presents to ED with abscesses to her arms. History of drug use Differential diagnoses include: Cellulitis, dermatitis, insect bite, abscess Clinical course Patient placed on stretcher. After initial history, physical exam reveals a female in no acute distress. On exam there is a area of erythema and induration to the proximal aspect of the right humerus and left humerus. Indurated. No fluctuance or discharge. Patient afebrile, nontoxic-appearing. She admits to substance abuse. I do not believe they are amenable to I&D at this time. We will attempt conservative treatment with warm compresses and antibiotics. Given Augmentin ED. Safe for discharge with close outpatient follow-up. States she has a PMD Diagnosis - abscess, substance abuse stable and discharged to home with prescription for Augmentin. Instructed to followup with PMD. Instructed return to ED if symptoms recur or worsen Last Vital Signs Date Time Temp Pulse Resp B/P (MAP) Pulse Ox O2 Delivery O2 Flow Rate FiO2 04/01/20 15:00 97.9 80 17 132/85 98 Room Air Status: improved Disposition: HOME, SELF-CARE Condition: Stable Scripts Amoxicillin/Potassium Clav 875-125* (AUGMENTIN 875-125 TABLET*) 1 Each Tablet 1 TAB ORAL TWICE A DAY, #14 TAB Prov: Luis Fernando Londono MD 04/01/20 Patient Instructions: Abscess Luis Fernando Londono MD Apr 01, 2020 20:24
== END 2020-04-01 15:02 | disposition home or self-care (01) ==
LOC: EMR 14:43
DX: L02.414 Cutaneous abscess of left upper limb (principal); L02.413 Cutaneous abscess of right upper limb; I10 Essential (primary) hypertension; Z86.73 Personal history of transient ischemic attack (TIA), and cerebral infarction without residual deficits; J44.9 Chronic obstructive pulmonary disease, unspecified; E66.9 Obesity, unspecified; F19.10 Other psychoactive substance abuse, uncomplicated
CPT/HCPCS: 99282

== ENCOUNTER 2020-04-10 20:00 | Emergency (ER) | payer MEDICAID ==
[~2020-04-10] VITALS: Ht 167.6 cm; Wt 82.6 kg
[~2020-04-10 20:00] MED LIST changes: +AUGMENTIN 875-1 EAC1 ORAL; +ENALAPRIL-HCTZ1 EACH ORAL
[2020-04-10 20:10] VITALS: BP 187/117
[2020-04-10] MEDS ORDERED: Acetaminophen 500mg (ES) tab ORAL ONE (20:15)
[2020-04-10] MEDS ORDERED: Bactrim-DS 1 tab ORAL ONE (20:30)
[2020-04-10] MEDS ORDERED: Cephalexin 500mg cap ORAL ONE (20:30)
[2020-04-10] MEDS ORDERED: BACTRIM DS TAB1 EAC1 ORAL (20:58)
[2020-04-10] MEDS ORDERED: CEPHALEXIN500 MG ORAL (20:58)
[2020-04-10] MEDS ORDERED: TYLENOL EXTRA500 MG ORAL (20:58)
[2020-04-10 21:00] VITALS: BP 150/95
--- NOTE | 2020-04-12 06:48 | Emergency Room Report ---
History of Present Illness General Chief Complaint: Skin Rash/Abscess Source: Patient Present Illness HPI 64-year-old female presents the ED with abscess to her left shoulder. States that she was seen here last week and was given antibiotics. States that it did not improve and got worse. Pain is throbbing, 10 out of 10, nonradiating. Denies fevers or chills. Admits to drug use no other aggravating relieving factors. Denies any other associated symptoms Allergies: Coded Allergies: MEPERIDINE (Verified Allergy, Unknown, 04/10/20) COVID-19 Screening Contact w/high risk pt: No Experienced COVID-19 symptoms?: No COVID-19 Testing performed RATER ASSOCIATE: No Patient History Past Medical History: HTN, CVA/TIA Social History: Reports: drug use Now: No Immunizations: UTD Reviewed Nursing Documentation: PMH: Agreed; PSxH: Agreed Nursing Documentation-PMH Past Medical History: No History, Except For Hx Cardiac Problems: Yes - cva, stroke, partial hystrectomy Hx Hypertension: Yes Hx COPD: Yes Hx Cancer: Yes Hx Gastrointestinal Problems: Yes - Patial intesins removed Hx Neurological Problems: Yes - Cerebral Aneurysm Hx Cerebrovascular Accident: Yes - 2011, 2012 Hx Headaches: Yes Hx Weakness: Yes Review of Systems All Other Systems: negative except mentioned in HPI Physical Exam Vital Signs Date Time Temp Pulse Resp B/P (MAP) Pulse Ox O2 Delivery O2 Flow Rate FiO2 04/10/20 20:02 98.4 95 16 187/117 (140) 95 Room Air Sp02 EP Interpretation: reviewed, normal General Appearance: alert, GCS 15, non-toxic, mild distress Head: normocephalic, atraumatic Eyes: bilateral eye normal inspection, bilateral eye PERRL ENT: hearing grossly normal, normal pharynx, no angioedema, normal voice Neck: full range of motion, supple/symm/no masses Respiratory: chest non-tender, lungs clear, normal breath sounds, speaking full sentences Cardiovascular #1: regular rate, rhythm, no edema Cardiovascular #2: 2+ carotid (R), 2+ carotid (L), 2+ radial (R), 2+ radial (L), 2+ dorsalis pedis (R), 2+ dorsalis pedis (L) Gastrointestinal: normal bowel sounds, non tender, soft, non-distended, no guarding, no rebound Rectal: deferred Genitourinary: normal inspection, no CVA tenderness Musculoskeletal: back normal, normal range of motion, gait/station normal, non- tender Neurologic: alert, motor strength/tone normal, oriented x3, sensory intact, responsive, speech normal Psychiatric: judgement/insight normal, memory normal, mood/affect normal, no suicidal/homicidal ideation Reflexes: 3+ bicep (R), 3+ bicep (L), 3+ tricep (R), 3+ tricep (L), 3+ knee (R), 3+ knee (L) Skin: other - abscess L shoulder. fluctuant. Lymphatic: no adenopathy Procedures Incision and Drainage Incision and Drainage : Consent: Verbal Blade Size: 11 I & D Procedure: betadine prep, sterile drapes applied, sterile dressing applied, gauze wick placed Wound Location: upper extremity - L shoulder Wound's Depth, Shape: other - abscess Wound Explored: purleunt discharge expressed Anesthesia: 1% Lidocaine Splint Applied?: No Sling Applied?: No Patient Tolerated: Well Complications: None Medical Decision Making Diagnostic Impression: Primary Impression: Abscess Additional Impression: Substance abuse ER Course Hospital Course 64-year-old female presents with abscess to left shoulder. History of drug use Clinical course Patient placed on stretcher. After initial history and physical I ordered pain medication I reviewed EMR. I saw this patient last week. At that time there was no fluctuance but there was some erythema and induration noted. we attempted to treat conservatively with antibiotics but patient was told to return if symptoms did not improve. Anesthesia applied. I&D performed using scapula. Forceps used to break up loculations. Significant amount of purulent discharge was expressed. Patient tolerated without complication. Dressings applied. We will treat with Keflex and Bactrim. Given in ED. Safe for discharge close outpatient follow-up. Urged on cautions of drug use. I will provide referrals Diagnosis - abscess, substance abuse Stable and discharged to home with prescription for bactrim, Keflex. wound Care instructions given. Followup with PMD. Return to ED if any signs of infection develop Last Vital Signs Date Time Temp Pulse Resp B/P (MAP) Pulse Ox O2 Delivery O2 Flow Rate FiO2 04/10/20 21:00 98.2 90 16 150/95 97 Room Air Status: improved Disposition: HOME, SELF-CARE Condition: Stable Scripts Trimethoprim/Sulfamethoxazole 160/800* (BACTRIM DS TABLET*) 1 Each Tablet 1 TAB ORAL Q12H, #14 TAB 0 Refills Prov: Luis Fernando Londono MD 04/10/20 Cephalexin* (KEFLEX*) 500 Mg Capsule 500 MG ORAL EVERY 6 HOURS for 7 Days, CAP Prov: Luis Fernando Londono MD 04/10/20 Acetaminophen* (TYLENOL EXTRA STRENGTH*) 500 Mg Tablet 500 MG ORAL Q8H PRN for Prn Headache/Temp > 101, #30 TAB 0 Refills Prov: Luis Fernando Lonodno MD 04/10/20 Patient Instructions: Luis Fernando Bruno MD Apr 12, 2020 06:48
== END 2020-04-10 21:00 | disposition home or self-care (01) ==
LOC: EMR 20:15
DX: L02.414 Cutaneous abscess of left upper limb (principal); I10 Essential (primary) hypertension; Z90.710 Acquired absence of both cervix and uterus; F19.10 Other psychoactive substance abuse, uncomplicated; J44.9 Chronic obstructive pulmonary disease, unspecified; Z86.73 Personal history of transient ischemic attack (TIA), and cerebral infarction without residual deficits; Z85.9 Personal history of malignant neoplasm, unspecified; Z90.49 Acquired absence of other specified parts of digestive tract; Z88.8 Allergy status to other drugs, medicaments and biological substances
CPT/HCPCS: 10060; Z7502; 99283

== ENCOUNTER 2020-05-01 21:12 | Emergency (ER) | payer MEDICAID ==
[~2020-05-01] VITALS: Ht 167.6 cm; Wt 82.6 kg
[~2020-05-01 21:12] MED LIST changes: +BACTRIM DS TAB1 EAC1 ORAL; +TYLENOL EXTRA500 MG ORAL
--- NOTE | 2020-05-01 21:15 | NUR ---
ED Nurse Note: Patient walked into the ED with c/o pain on left upper arm. Patients left upper arm is swollen due to heroin shot a week ago. Redness and swelling is present on the area. Patient states shes feeling weak with episodes of abdominal pain. Patient denies fever and chills, CP/SOB/, N&V. PAtient is AAOX4 and ambulatory.
[2020-05-01] MEDS ORDERED: Vancomycin 1 GM in NS 275 ML IV ONE (21:30)
--- NOTE | 2020-05-01 21:45 | NUR ---
ED Nurse Note: Xray done
[2020-05-01 22:00] VITALS: BP 168/98
--- NOTE | 2020-05-01 22:00 | NUR ---
ED Nurse Note: Blood sent to lab
--- NOTE | 2020-05-01 22:06 | NUR ---
CONTACT INFO KARI, PATIENTS DAUGHTER [phone]
[2020-05-01 22:16] LABS: ANION GAP 5 mmol/L (5-15); BLOOD UREA NITROGEN 11 mg/dL (7-18); CALCIUM 8.5 MG/DL (8.5-10.1); CARBON DIOXIDE 28 MMOL/L (21-32); CHLORIDE 102 MMOL/L (98-107); CREATININE 0.7 MG/DL (0.55-1.30); POTASSIUM 4.1 MMOL/L (3.5-5.1); SODIUM 135 MMOL/L (136-145)
--- NOTE | 2020-05-01 22:23 | Emergency Room Report ---
History of Present Illness General Chief Complaint: Pain Present Illness HPI 64-year-old female with history of IV heroin abuse here with swelling and pain of right shoulder. Patient says that 1 week ago she injected heroin into her right upper arm and noticed pain and swelling that began 2 days later. She says that the symptoms have gradually worsened. It is now so severe that she cannot move her right upper extremity whatsoever. Has had subjective fevers but is not checked her temperature. No chills, chest pain, palpitations, shortness of breath, back pain, abdominal pain, nausea, vomiting, diarrhea, dysuria. Allergies: Coded Allergies: MEPERIDINE (Verified Allergy, Unknown, 04/10/20) COVID-19 Screening Contact w/high risk pt: No Experienced COVID-19 symptoms?: No COVID-19 Testing performed PETROLEUM REFINING EQUIPMENT OPERATOR: No Nursing Documentation-PMH Hx Cardiac Problems: Yes - cva, stroke, partial hystrectomy Hx Hypertension: Yes Hx COPD: Yes Hx Cancer: Yes - cervical CA Hx Gastrointestinal Problems: Yes - Patial intesines removed Hx Neurological Problems: Yes - Cerebral Aneurysm Hx Cerebrovascular Accident: Yes - 2011, 2012 Hx Headaches: Yes Hx Weakness: Yes Review of Systems All Other Systems: negative except mentioned in HPI Physical Exam Vital Signs Date Time Temp Pulse Resp B/P (MAP) Pulse Ox O2 Delivery O2 Flow Rate FiO2 05/01/20 21:15 98.8 82 18 181/113 (135) 95 Room Air Sp02 EP Interpretation: reviewed, normal General Appearance: no apparent distress, alert, non-toxic Head: normocephalic, atraumatic Eyes: bilateral eye normal inspection, bilateral eye PERRL ENT: hearing grossly normal, normal pharynx, no angioedema, normal voice Neck: full range of motion, supple/symm/no masses Respiratory: chest non-tender, lungs clear, normal breath sounds, speaking full sentences Cardiovascular #1: regular rate, rhythm, no edema Cardiovascular #2: 2+ carotid (R), 2+ carotid (L), 2+ radial (R), 2+ radial (L), 2+ dorsalis pedis (R), 2+ dorsalis pedis (L) Gastrointestinal: normal bowel sounds, non tender, soft, non-distended, no guarding, no rebound Rectal: deferred Genitourinary: normal inspection, no CVA tenderness Musculoskeletal: back normal, calf tenderness, gait/station normal, other - Multiple scars diffusely in all extremities. Large area of erythema and induration of the right shoulder and proximal right upper arm approximately 10 cm in diameter. Severely tender on palpation. Not actively draining Neurologic: alert, motor strength/tone normal, sensory intact, responsive, speech normal Psychiatric: judgement/insight normal, memory normal, mood/affect normal, no suicidal/homicidal ideation Lymphatic: no adenopathy Medical Decision Making ER Course 64-year-old female history of IV drug use here with large abscess of right upper extremity. Patient was hemodynamically stable in the emergency department and was denying any chest pain or palpitations or shortness of breath. No worry of endocarditis at this time. She had evidence of a large abscess in the proximal right upper extremity. Imaging pending at this time. Patient will be started on vancomycin in the emergency department. Signed out to oncoming physician. EKG: NSR, no ischemia, first-degree AV block. No ectopy Rhythm strip: patient monitored for arrhythmias - no malignant dysrhythmias, runs of PVCs, nor pauses noted Last Vital Signs Date Time Temp Pulse Resp B/P (MAP) Pulse Ox O2 Delivery O2 Flow Rate FiO2 05/01/20 21:15 98.8 82 18 181/113 (135) 95 Room Air Referrals: [facility]ERR[facility] (PCP) Joni Hernández M.D. May 01, 2020 22:23
[2020-05-01 22:29] LABS: ALANINE AMINOTRANSFERASE 15 U/L (12-78); ALBUMIN 2.7 G/DL (3.4-5.0); ALBUMIN/GLOBULIN RATIO 0.5 (1.0-2.7); ALKALINE PHOSPHATASE 107 U/L (46-116); ASPARTATE AMINO TRANSFERASE 15 U/L (15-37); BILIRUBIN,TOTAL 0.4 MG/DL (0.2-1.0); CKMB < 0.5 NG/ML (0.0-3.6); CREATINE KINASE 48 U/L (26-308)
--- NOTE | 2020-05-01 22:30 | NUR ---
ED Nurse Note: CT scan done
[2020-05-01 22:31] LABS: BASOPHILS % (AUTO) 0.9 % (0.0-2.0); EOSINOPHILS % (AUTO) 1.9 % (0.0-3.0); HEMATOCRIT 43.5 % (37.0-47.0); HEMOGLOBIN 13.4 G/DL (12.0-16.0); LYMPHOCYTES % (AUTO) 13.2 % (20.0-45.0); MEAN CORPUSCULAR VOLUME 73 FL (80-99); MONOCYTES % (AUTO) 6.1 % (1.0-10.0); NEUTROPHILS % (AUTO) 77.9 % (45.0-75.0); PLATELET COUNT 349 K/UL (150-450); RED BLOOD COUNT 5.98 M/UL (4.20-5.40); WHITE BLOOD COUNT 12.8 K/UL (4.8-10.8)
--- NOTE | 2020-05-01 23:09 | Diagnostic Imaging Report ---
EXAM: CT Right Upper Extremity With Intravenous Contrast CLINICAL HISTORY: PAIN TECHNIQUE: Axial computed tomography images of the right upper extremity with intravenous contrast. CTDI is 7.8 mGy and DLP is 218.3 mGy-cm. One or more of the following dose reduction techniques were used: automated exposure control, adjustment of the mA and/or kV according to patient size, use of iterative reconstruction technique. COMPARISON: No relevant prior studies available. FINDINGS: Bones/joints: Unremarkable. No acute fracture. No dislocation. Soft tissues: Extensive skin thickening and subcutaneous edema over the right shoulder with probable thickening of the right deltoid muscle. Possible right deltoid intramuscular 0.9cm hypodensity with surrounding enhancement, axial series 14, image 35 anterior to the humerus could represent intramuscular tiny abscess, and could be seen with pyomyositis. Hyperdense curvilinear foreign object 1 mean is in length over the lateral aspect of the right upper arm axial series 14, image 36 of uncertain significance. IMPRESSION: 1. No acute osseous traumatic injury. 2. Right deltoid possible intramuscular tiny abscess potentially representing pyomyositis. 3. Right shoulder overlying soft tissue findings which could represent cellulitis or trauma. 4. If there is further clinical desire to evaluate, consider MRI upper extremity without and with IV contrast. 5. Hyperdense curvilinear foreign object 1 mean is in length over the lateral aspect of the right upper arm axial series 14, image 36 of uncertain significance. <MYCVCSECTION> Communications: 05/01/20 23:09 Call Doctor Regarding Other, called Álvaro Rubio MD on 05/01 23:09 (-07:00)
[2020-05-01] MEDS ORDERED: CEPHALEXIN500 MG ORAL (23:22)
[2020-05-01] MEDS ORDERED: BACTRIM DS TAB1 EAC1 ORAL (23:22)
[2020-05-01 23:44] VITALS: BP 153/98
--- NOTE | 2020-05-02 12:06 | Cardiology Report ---
APPROVED REPORT EKG Measurement Heart [id number] [id number] <Conclusion> Sinus rhythm with 1st degree AV block Left ventricular hypertrophy with repolarization abnormality Abnormal ECG
--- NOTE | 2020-05-02 13:13 | Diagnostic Imaging Report ---
Indication: Reason For Exam: ABSCESS Technique: Single AP view of the chest. Comparison: Chest radiograph dated 06/15/2019 Findings: The cardiomediastinal silhouette is is unchanged in appearance, with persistent mild cardiomegaly. New streaky right midlung and basilar airspace opacities. Left basilar airspace opacity is seen on prior examination and likely representing chronic atelectasis. No pneumothorax. No large pleural effusion. No acute osseous abnormality. IMPRESSION: New streaky airspace opacities in the right midlung and right lung base, which could reflect atelectasis but pneumonia should be excluded on a clinical basis.
== END 2020-05-01 23:45 | disposition home or self-care (01) ==
LOC: EMR 21:35 → CANBEDREQ 23:16 → EMR 23:45
DX: L02.413 Cutaneous abscess of right upper limb (principal); L03.113 Cellulitis of right upper limb; I10 Essential (primary) hypertension; F11.10 Opioid abuse, uncomplicated; Z88.8 Allergy status to other drugs, medicaments and biological substances; Z90.710 Acquired absence of both cervix and uterus; Z86.73 Personal history of transient ischemic attack (TIA), and cerebral infarction without residual deficits; Z85.41 Personal history of malignant neoplasm of cervix uteri; J44.9 Chronic obstructive pulmonary disease, unspecified; Z90.49 Acquired absence of other specified parts of digestive tract; I44.0 Atrioventricular block, first degree
CPT/HCPCS: 36415; 71045; 73201; 80053; 82550; 82553; 83605; 84484; 85025; 87040; 93005; 96365; 96366; J3370; J7050; Z7502; 99284

== ENCOUNTER 2020-06-12 12:44 | Emergency (ER) | payer MEDICAID ==
[~2020-06-12] VITALS: Ht 172.7 cm; Wt 83.9 kg
--- NOTE | 2020-06-12 13:08 | NUR ---
ED Nurse Note: pt presents to ED c/o L earache since this AM. pt denies any sore throat or fevers at this time. no hearing loss.
[2020-06-12 13:09] VITALS: BP 147/90
--- NOTE | 2020-06-12 13:10 | Emergency Room Report ---
History of Present Illness General Chief Complaint: Earache Source: Significant Other Present Illness HPI 65-year-old female with history of angina and hypertension with recurrences of otitis media here complaining of 3 days of left ear pain rating it 5 out of 10 without radiation. Denies tinnitus, hearing loss, vertigo, dizziness, fever and chills, sore throat and congestion. Has not taken medication for symptom relief. Sitting comfortably with stable vital signs. Denies head trauma or bleeding from the ears Allergies: Coded Allergies: MEPERIDINE (Verified Allergy, Unknown, 04/10/20) COVID-19 Screening Contact w/high risk pt: No Experienced COVID-19 symptoms?: No COVID-19 Testing performed JOURNAL BOX INSPECTOR: No Patient History Past Medical History: see triage record Past Surgical History: none Pertinent Family History: none Now: No Immunizations: UTD Reviewed Nursing Documentation: PMH: Agreed; PSxH: Agreed Nursing Documentation-PMH Hx Cardiac Problems: Yes - cva, stroke, partial hystrectomy Hx Hypertension: Yes Hx COPD: Yes Hx Cancer: Yes - cervical CA Hx Gastrointestinal Problems: Yes - Patial intesines removed Hx Neurological Problems: Yes - Cerebral Aneurysm Hx Cerebrovascular Accident: Yes - 2011, 2012 Hx Headaches: Yes Hx Weakness: Yes Review of Systems All Other Systems: negative except mentioned in HPI Physical Exam Vital Signs Date Time Temp Pulse Resp B/P (MAP) Pulse Ox O2 Delivery O2 Flow Rate FiO2 06/12/20 13:03 97.0 76 19 147/90 (109) 95 Room Air Sp02 EP Interpretation: reviewed, normal General Appearance: no apparent distress, alert, GCS 15, non-toxic Head: normocephalic, atraumatic Eyes: bilateral eye normal inspection, bilateral eye PERRL ENT: other - Left TM bulging erythema in left ear canal Neck: full range of motion, supple/symm/no masses Respiratory: chest non-tender, lungs clear, normal breath sounds, speaking full sentences Cardiovascular #1: regular rate, rhythm, no edema Gastrointestinal: normal bowel sounds, non tender, soft, non-distended, no guarding, no rebound Musculoskeletal: back normal Neurologic: alert, motor strength/tone normal, oriented x3, sensory intact, responsive, speech normal Psychiatric: judgement/insight normal, memory normal, mood/affect normal, no suicidal/homicidal ideation Skin: no rash Lymphatic: no adenopathy Medical Decision Making PA Attestation All my diagnosis and treatment plans were reviewed ad discussed with my supervising physician Dr. Londono Diagnostic Impression: Primary Impression: Otitis media ER Course 65-year-old female with history of angina and hypertension with recurrences of otitis media here complaining of 3 days of left ear pain rating it 5 out of 10 without radiation. Denies tinnitus, hearing loss, vertigo, dizziness, fever and chills, sore throat and congestion. Has not taken medication for symptom relief. Sitting comfortably with stable vital signs. Denies head trauma or bleeding from the ears Ddx considered but are not limited to: Otitis media, otitis externa, mastoiditis ,strep pharyngitis, URI, tonsillitis, peritonsillar abscess, influneza Vital signs: are WNL, pt. is afebrile H&PE are most consistent with: Otitis media left ear ORDERS: Augmentin ED INTERVENTIONS: None required at this time. DISCHARGE: At this time pt. is stable for d/c to home. Will provide printed patient care instructions, and any necessary prescriptions. Care plan and follow up instructions have been discussed with the patient prior to discharge. Advised patient take medication as directed, follow-up with ENT, take Tylenol M otrin for pain, if worsening symptoms return to the emergency room Last Vital Signs Date Time Temp Pulse Resp B/P (MAP) Pulse Ox O2 Delivery O2 Flow Rate FiO2 06/12/20 13:03 97.0 76 19 147/90 (109) 95 Room Air Disposition: HOME, SELF-CARE Condition: Stable Scripts Amoxicillin/Potassium Clav 875-125* (AUGMENTIN 875-125 TABLET*) 1 Each Tablet 1 TAB ORAL TWICE A DAY for 10 Days, #20 TAB Prov: Tom Taylor 06/12/20 Patient Instructions: Otitis Media, Adult, [id number] Additional Instructions: Take medication as directed, follow-up with your primary care provider, if worsening symptoms return to the emergency room Tom Taylor Jun 12, 2020 13:10
[2020-06-12] MEDS ORDERED: AUGMENTIN 875-1 EAC1 ORAL (13:12)
[2020-06-12 13:20] VITALS: BP 147/90
--- NOTE | 2020-06-12 13:20 | NUR ---
ER DISCHARGE NOTE: Patient is cleared to be discharged per ERMD, pt is aox4, on room air, with stable vital signs. pt was given dc and prescription instructions, pt was able to verbalize understanding, pt id band removed without complications. pt is able to ambulate with steady gait. pt took all belongings.
== END 2020-06-12 13:20 | disposition home or self-care (01) ==
LOC: EMR 13:10
DX: H66.92 Otitis media, unspecified, left ear (principal); I10 Essential (primary) hypertension; J44.9 Chronic obstructive pulmonary disease, unspecified; Z85.41 Personal history of malignant neoplasm of cervix uteri; Z86.73 Personal history of transient ischemic attack (TIA), and cerebral infarction without residual deficits
CPT/HCPCS: 99282

== ENCOUNTER 2020-09-25 15:02 | Emergency (ER) | payer MEDICAID ==
[~2020-09-25] VITALS: Ht 167.6 cm; Wt 81.6 kg
[2020-09-25] MEDS ORDERED: HYDROcodone/Acetamin 5/325 tab ORAL ONE (15:30)
--- NOTE | 2020-09-25 15:31 | Emergency Room Report ---
History of Present Illness General Chief Complaint: To Be Triaged Present Illness HPI 65 YO Female presents to the ED c/o 02/20 in severity left ankle pain and swelling status post mechanical slip and fall. She denies hitting her head or having any midline neck or back pain. She reports pain with weight bearing. She reports swelling as well. She denies open wounds or bruising. Pt. reports she remembers the entire event. Pt. reports hx of HTN, COPD and previous CVA. She denies paresthesias. She denies loss of gross motor movements. She reports she has not taken anything for her pain. Allergies: Coded Allergies: MEPERIDINE (Verified Allergy, Unknown, 04/10/20) COVID-19 Screening Contact w/high risk pt: No Experienced COVID-19 symptoms?: No Patient History Past Medical History: see triage record, HTN, other - angina Past Surgical History: other - yes Pertinent Family History: none Now: No Reviewed Nursing Documentation: PMH: Agreed; PSxH: Agreed Nursing Documentation-PMH Hx Cardiac Problems: Yes - cva, stroke, partial hystrectomy Hx Hypertension: Yes Hx COPD: Yes Hx Cancer: Yes - cervical CA Hx Gastrointestinal Problems: Yes - Patial intesines removed Hx Neurological Problems: Yes - Cerebral Aneurysm Hx Cerebrovascular Accident: Yes - 2011, 2012 Hx Headaches: Yes Hx Weakness: Yes Review of Systems All Other Systems: negative except mentioned in HPI Physical Exam Sp02 EP Interpretation: reviewed, normal General Appearance: no apparent distress, alert, GCS 15, non-toxic Head: normocephalic, atraumatic Eyes: bilateral eye normal inspection, bilateral eye PERRL ENT: hearing grossly normal, normal voice Neck: full range of motion, no bony tend Respiratory: lungs clear, normal breath sounds, speaking full sentences Cardiovascular #1: regular rate, rhythm, no edema, normal capillary refill Cardiovascular #2: 2+ dorsalis pedis (L) Musculoskeletal: back normal, normal range of motion, tender - left foot + ankle, swelling - left foot + ankle, other - unable to bear weight on left foot/ankle Neurologic: alert, motor strength/tone normal, oriented x3, sensory intact, responsive, speech normal Psychiatric: judgement/insight normal Skin: no rash, normal color - no bruising Medical Decision Making PA Attestation Dr. Wallace is my supervising Physician whom patient management has been discussed with. Diagnostic Impression: Primary Impression: Ankle fracture, left Qualified Codes: S82.892A - Other fracture of left lower leg, initial encounter for closed fracture ER Course 65 YO Female presents to the ED c/o 02/20 in severity left ankle pain and swelling status post mechanical slip and fall. She denies hitting her head or having any midline neck or back pain. She reports pain with weight bearing. She reports swelling as well. She denies open wounds or bruising. Pt. reports she remembers the entire event. Pt. reports hx of HTN, COPD and previous CVA. She denies paresthesias. She denies loss of gross motor movements. She reports she has not taken anything for her pain. Ddx considered but are not limited to Fracture, dislocation, contusion, Sprain/Strain/Spasm just to name a few. Vital signs: are WNL, pt. is afebrile H&PE are most consistent with musculoskeletal injury will perform imaging to r/o fractures/dislocations. ORDERS: - X-ray Left ankle 3 views, and Left foot 3 views - Positive for distal fibular fx and associated ST swelling on the ankle films. No Dislocations--per preliminary read in ED, and signed by SABIHA Garcia, my supervising physician has reviewed, and agrees with my interpretation. ED INTERVENTIONS: - Stratford 5mg -Left short leg posterior splint applied by ground water technician. Pt. remains neurovascularly intact. -Patient is provided with crutches and instructed on their use. D/w pt. Outpatient Orthopedic F/u. She is given medications warnings pertinent to Stratford. She is also given ED return precautions. DISCHARGE: At this time pt. is stable for d/c to home. Will provide printed patient care instructions, and any necessary prescriptions. Care plan and follow up instructions have been discussed with the patient prior to discharge. Other X-Ray Diagnostic Results Other X-Ray Diagnostic Results #1: X-Ray ordered: Left Foot # of Views/Limited Vs Complete: 3 View Indication: Pain EP Interpretation: Yes SABIHA Xray: Interpretation reviewed, by supervising MD, and agrees with findings. Interpretation: no dislocation, no fractures, other - lateral left ankle ST swelling Impression: No acute disease Electronically Signed by: Suzan Garcia PA-C Other X-Ray Diagnostic Results #2: X-Ray ordered: Left Ankle # of Views/Limited Vs Complete: 3 View Indication: Pain EP Interpretation: Yes PA Xray: Interpretation reviewed, by supervising MD, and agrees with findings. Interpretation: no dislocation, no soft tissue swelling, other - ST swelling and distal fibular fracture, non displaced. Impression: Other - abnormal Electronically Signed by: Suzan Garcia PA-C Status: improved Disposition: HOME, SELF-CARE Condition: Stable Scripts Hydrocodone/Acetaminophen 5-325* (HYDROCODONE/ACETAMINOPHEN 5-325*) 1 Each Tablet 1 TAB ORAL Q8H PRN for For Pain, #12 TAB 0 Refills Prov: Suzan Garcia 09/25/20 Referrals: Orthopedic Urgent Care Patient Instructions: Ankle Fracture Additional Instructions: Take medications as directed. Follow up with an [facility] in 3-5 days, even if your symptoms have resolved. If symptoms persist MRI may be required at the discretion of your PCP or Ortho Specialist. --Please review list of primary care clinics, if you do not already have a primary care provider who can give you an Orthopedic Referral. Return sooner to ED if new symptoms occur, or current symptoms become worse. Do not drink alcohol, drive, or operate heavy machinery while taking Stratford as this may cause drowsiness. - Please note that this Emergency Department Report was dictated using iRidgemaintenance shop clerk technology software, occasionally this can lead to erroneous entry secondary to interpretation by the dictation equipment. Suzan Garcia Sep 25, 2020 15:31
--- NOTE | 2020-09-25 15:50 | NUR ---
ED Nurse Note:pt relates she had a slip and fall and now unable to weight bear to left ankle. good cms distally.
[2020-09-25] MEDS ORDERED: HYDROCODON-ACE1 EA15 ORAL (16:14)
--- NOTE | 2020-09-25 16:21 | Diagnostic Imaging Report ---
Indication: Foot pain status post fall Technique: 3 views left foot Comparison: none Findings: There are degenerative changes of the first metatarsophalangeal joint. No acute foot fracture. No dislocation. There is a fracture of the distal fibula seen on the lateral view, also described on separate ankle radiograph. Impression: No acute foot fracture Distal fibular fracture-see separate ankle radiograph report Mild degenerative changes
--- NOTE | 2020-09-25 16:21 | Diagnostic Imaging Report ---
Indication: Ankle pain status post fall Technique: 3 views of the left ankle Comparison: none Findings: There is a nondisplaced fracture of the distal fibula. There is overlying soft tissue swelling. No definite tibial or talar fracture demonstrated. No dislocation. There are vascular calcifications. Impression: Positive for nondisplaced distal fibular fracture. This was discussed by phone with SABIHA Lee, in the emergency room at the time of interpretation
--- NOTE | 2020-09-25 16:54 | NUR ---
ED Nurse Note: pt with good demo of crutches use. good cms remains s/p splint application.
--- NOTE | 2020-09-25 17:04 | NUR ---
pt ambulating with crutches. pt has steady gait. pt verbalizes discharge instructions and education. pt has full circulation intact in LLE. pt states she is able to move toes, sensation intact, cap refill <3 sec.
--- NOTE | 2020-09-25 17:07 | NUR ---
ED Nurse Note: Pt cleared by health care Provider for discharge. DC instructions/prescription was given and explained to pt and verbalized understanding of teachings. All medical deviecs such as ID band removed. Pt is AAO x4, ambulatory and left with all personal belongings.
[2020-09-25 17:08] VITALS: BP 138/79
== END 2020-09-25 17:12 | disposition home or self-care (01) ==
LOC: EMR 15:20
DX: S82.492A Other fracture of shaft of left fibula, initial encounter for closed fracture (principal); W01.0XXA Fall on same level from slipping, tripping and stumbling without subsequent striking against object, initial encounter; Y92.9 Unspecified place or not applicable; Z88.8 Allergy status to other drugs, medicaments and biological substances; I10 Essential (primary) hypertension; Z90.710 Acquired absence of both cervix and uterus; J44.9 Chronic obstructive pulmonary disease, unspecified; Z85.41 Personal history of malignant neoplasm of cervix uteri
CPT/HCPCS: 29515; 73610; 73630; Z7502; 99284